=== PATIENT | female | born 1960 | race Caucasian/White ===

== ENCOUNTER 2017-07-08 15:10 | Emergency (ER) | payer BC ==
--- NOTE | 2017-07-08 15:53 | EDPHY ---
H & P Stated Complaint: CP this AM Time Seen by Provider: 07/08/17 15:36 HPI/ROS: CHIEF COMPLAINT: Chest pain HISTORY OF PRESENT ILLNESS: The patient is a 57 y/o female with sleep apnea with a chief complaint of chest pain. Early this morning, she was wearing her CPAP and awoke suddenly with central chest pain. She took off her CPAP and went to the bathroom. The chest pain was sharp and stabbing. She began to feel anxious and developed a rapid heart rate. The symptoms completely resolved within 20 minutes. She then went to sleep and awoke at 12:30 PM and the pain was gone. Two times previously she was awoken by similar substernal chest pain that was resolved by burping, which is the same sensation she feels when she eats spicy foods. She denies a history of hypertension, diabetes, or family history of early cardiac disease. She has a history of hypercholesteremia for which she does not take medication. She denies any associated symptoms. REVIEW OF SYSTEMS: A 10 point review of systems was performed and is negative with the exception of the elements mentioned in the history of present illness. - Personal History Current Tetanus/Diphtheria Vaccine: Yes Current Tetanus Diphtheria and Acellular Pertussis (TDAP): Yes - Medical/Surgical History PMH: 1. Breast cancer 2. Thyroid cancer 3. Hyperlipidemia 4. Sleep apnea Hx Asthma: No Hx Chronic Respiratory Disease: No Hx Diabetes: No Hx Cardiac Disease: Yes Hx Renal Disease: No Hx Cirrhosis: No Hx Alcoholism: No Hx HIV/AIDS: No Hx Splenectomy or Spleen Trauma: No Other PMH: HTN, sleep apnea, Breast and thyroid CA - Family History Significant Family History: Renal disease - Social History Smoking Status: Never smoked Alcohol Use: None Drug Use: None Additional Social History: Non-smoker, denies alcohol use, rare caffeine use - Physical Exam Exam: General Appearance: Alert, no distress Eyes: Pupils equal and round, no conjunctival pallor or injection ENT, Mouth: Mucous membranes moist Neck: Normal inspection Respiratory: Lungs are clear to auscultation Cardiovascular: Regular rate and rhythm Gastrointestinal: Abdomen is soft and non- tender Neurological: A&O, nonfocal, normal gait Skin: Warm and dry, no rash Extremities: Nontender, no pedal edema Psychiatric: Mood and affect normal Constitutional: Initial Vital Signs Temperature (C) 37.2 C 07/08/17 15:16 Heart Rate 68 07/08/17 15:16 Respiratory Rate 17 07/08/17 15:16 Blood Pressure 180/103 H 07/08/17 15:16 O2 Sat (%) 98 07/08/17 15:16 O2 Delivery Mode Room Air Allergies/Adverse Reactions: promethazine HCl [From Phenergan] Allergy (Intermediate, Verified 04/27/11 21:24 ) WITH IV SITE PAIN-REDNESS acetaminophen [From Lortab] Allergy (Mild, Verified 04/27/11 21:24) HEADACHES hydrocodone bitartrate [From Lortab] Allergy (Mild, Verified 04/27/11 21:24) HEADACHES Penicillins Allergy (Mild, Verified 04/27/11 21:24) Rash Sulfa (Sulfonamide Antibiotics) Allergy (Mild, Verified 04/27/11 21:24) Rash monosodium glutamate Allergy (Verified 04/28/11 01:57) Diarrhea Home Medications: Medication Instructions Recorded Cholecalciferol (Vitamin D3) 1,000 unit PO DAILY 04/27/11 [Vitamin D3] Levothyroxine [Synthroid] 0.01 PO DAILY 04/27/11 Multivitamins W-Minerals/Lut 1 each PO DAILY 04/27/11 [Centrum Silver Tablet] Argyle-3 Fatty Acids [Argyle-3] 1,000 mg PO DAILY 04/27/11 Vitamin E [Vitamin E 1000 units] 1,200 unit PO DAILY 04/27/11 Medical Decision Making - Diagnostics EKG Interpretation: EKG interpreted by me reveal sinus rhythm, rate 67, T wave inversions in V1-V4. Imaging Results: Chest X-Ray 07/08/17 15:36 Impression: No acute cardiopulmonary abnormality. Chest/Thorax CTA 07/08/17 16:37 Impression: 1. No pulmonary embolism. 2. 2 noncalcified pulmonary nodules at the inferior aspect of the left midlung, concerning for metastatic disease given patient's prior history. 3. Small focal area of early consolidation at the periphery of the left midlung inferiorly, correlating almost exactly to where the nodules are. This could represent early developing pneumonia as well. It is remotely possible that the 2 nodules represent round pneumonia. Follow-up CT scan after appropriate treatment is suggested. Findings and recommendations discussed with Dr. Eugenia Sullivan at 1749 hour, 9/ . Final report concurs with initial preliminary interpretation. Imaging: Discussed imaging studies w/ call center receptionist Radiologist, I viewed and interpreted images myself ED Course/Re-evaluation: 57 year old female presents following a 20 minute episode of substernal chest pain, now resolved. Physical exam is unremarkable. EKG shows sinus rhythm, no evidence of ischemia. Plan for chest x-ray. Plan for labs including CBC, BMP, Troponin, and D-Dimer. D-Dimer elevated at 0.67. Plan for CTA to rule out PE. 17:[address] Mary, radiologist. CT negative for PE. 2 noncalcified pulmonary nodules noted incidentally, concerning given the patient's history of thyroid and breast cancer. Chest CT results discussed with the patient, including pulmonary nodules. She understands the need for prompt follow-up. Regarding the chest pain, I feel that she is safe and stable for discharge home. Her pain was greater than 6 hours ago and her troponin is normal. In addition this is atypical pain and I do not suspect acute coronary syndrome. There is no evidence of pulmonary embolism on CT scan. She will follow up with a automatic log cut off sawyer for treadmill testing. Differential Diagnosis: Differential diagnosis includes though it is not limited to pneumonia, pneumothorax, pulmonary embolism, aortic dissection, pericarditis, acute coronary syndrome. - Data Points Laboratory Results: Laboratory Results 07/08/17 16:05 07/08/17 16:05 Departure - Departure Disposition: Home, Routine, Self-Care Clinical Impression: Chest pain Qualifiers: Chest pain type: precordial pain Qualified Code(s): R07.2 - Precordial pain Condition: Good Instructions: Chest Pain (ED) Additional Instructions: 1. You have 2 pulmonary nodules in the left lung. You will need further evaluation through your primary care physician regarding these nodules. 2. Please follow up with your primary care physician or automatic log cut off sawyer for a stress test and further cardiac evaluation. 3. Return to the Emergency Department for fever, chest pain, shortness of breath , increasing pain or other worsening of condition. Referrals: Anayeli Butterfield MD [Primary Care Provider] - As per Instructions Garima Gutierrez MD [Medical Doctor] - As per Instructions Report Scribed for: Eugenia Sullivan Report Scribed by: Cassandra Jara Date of Report: 07/08/17 Time of Report: 16:09 Physician Review and Approval Statement: 07/08/17 16:09 Portions of this note were transcribed by a medical technologist blood bank. I personally performed a history, physical exam, medical decision making, and confirmed accuracy of information the transcribed note.
--- NOTE | 2017-07-08 15:55 | CPEKG ---
Heart Rate: 67 RR Interval: 896 P-R Interval: 204 QRSD Interval: 94 QT Interval: 420 QTC Interval: 444 P [place]: 6 QRS [place]: -9 T Wave [place]: 42 EKG Severity - BORDERLINE ECG - EKG Impression: SINUS RHYTHM EKG Impression: BORDERLINE T ABNORMALITIES, ANTERIOR LEADS Electronically Signed By: Eugenia Sullivan 08-Jul-2017 22:57:02
[2017-07-08 16:14] LABS: % IMMATURE GRANULYOCYTES 0.2 % (0.0-1.1); ABSOLUTE IMMATURE GRANULOCYTES 0.01 10^3/uL (0.00-0.10); ADD DIFF? NO; ADD MORPH? NO; ADD SCAN? NO; ATYPICAL LYMPHOCYTE FLAG 0 (0-99); FRAGMENT RBC FLAG 0 (0-99); HEMATOCRIT 44.2 % (38.0-47.0); HEMOGLOBIN 15.1 g/dL (12.6-16.3); LEFT SHIFT FLG 0 (0-99); LIPEMIA HEMOLYSIS FLAG 90 (0-99); MEAN CELL HEMOGLOBIN 29.2 pg (27.9-34.1); MEAN CELL HEMOGLOBIN CONCENTR. 34.2 g/dL (32.4-36.7); MEAN CELL VOLUME 85.5 fL (81.5-99.8); MEAN PLATELET VOLUME 8.8 fL (8.7-11.7); PLATELET CLUMPS FLAG 0 (0-99); PLATELET COUNT 201 10^3/uL (150-400); RED BLOOD CELL COUNT 5.17 10^6/uL (4.18-5.33); RED CELL DISTRIBUTION WIDTH 13.7 % (11.5-15.2)
[2017-07-08 16:26] LABS: ANION GAP 14 mEq/L (8-16); CALCIUM 9.7 mg/dL (8.5-10.4); CARBON DIOXIDE 27 mEq/l (22-31); CHLORIDE 103 mEq/L (97-110); CREATININE 0.8 mg/dL (0.6-1.0); GLOMERULAR FILTRATION RATE > 60; GLUCOSE 91 mg/dL (70-100); POTASSIUM 3.7 mEq/L (3.5-5.2); SODIUM 144 mEq/L (134-144)
[2017-07-08 16:38] LABS: TROPONIN I < 0.012 ng/mL (0.000-0.034)
[2017-07-08] MEDS ORDERED: IOPAMIDOL (ISOVUE 370) 100 ML BTL IV ONE (17:00)
[2017-07-08 18:13] VITALS: BP 173/94; PULSE 70; RESP 18; TEMP 98.1; O2SAT 94
== END 2017-07-08 18:13 | disposition home or self-care (01) ==
DX: R07.2 Precordial pain (principal); I10 Essential (primary) hypertension; Z85.3 Personal history of malignant neoplasm of breast; Z85.850 Personal history of malignant neoplasm of thyroid
CPT/HCPCS: Q9967

== ENCOUNTER → 2017-09-16 | Outpatient (CLI) | payer BC | LOC: FIMAGING 15:24 | PROVIDERS: ATTEND Obstetrics & Gynecology | DX: Z12.31 Encounter for screening mammogram for malignant neoplasm of breast (principal) | CPT/HCPCS: G0202-52; G0206 ==

== ENCOUNTER → 2018-07-31 | Outpatient (CLI) | payer BC | LOC: FIMAGING 11:13 | PROVIDERS: ATTEND Obstetrics & Gynecology | DX: Z13.820 Encounter for screening for osteoporosis (principal); M81.0 Age-related osteoporosis without current pathological fracture; Z78.0 Asymptomatic menopausal state ==